=== PATIENT | male | born 1980 | race Caucasian/White ===

== ENCOUNTER 2017-10-01 19:30 | Emergency (ER) | payer SELFPAY ==
[2017-10-01] MEDS ORDERED: KETOROLAC TROMETHAMINE 60 MG/2 ML VIAL IM ONE (19:37)
[2017-10-01] MEDS ORDERED: NALBUPHINE HCL 10 MG/1 ML IM ONE (19:48)
--- NOTE | 2017-10-01 20:25 | ED Physician Documentation ---
General Adult - HISTORIAN Historian: patient - HPI Stated Complaint: rib cage pain, SOA Chief Complaint: General Adult Onset: minutes Further Comments: yes (37 year old male patient presents with sudden onset on left lateral chest wall pain. Patient reports history of spontaneous pneumothorax. Sat 98% on arrival, RR 28, rates pain 10/10. Patient has played baseball, foot ball and built fence for the past 3 days.) - ROS CONST: no problems EYES/ENT: none CVS/RESP: none GI/: none MS/SKIN/LYMPH: none NEURO/PSYCH: denies: headache - PAST HX Past History: none Other History: none Surgeries/Procedures: other (hernia repair) Allergies/Adverse Reactions: Allergies Allergy/AdvReac Type Severity Reaction Status Date / Time cephalexin monohydrate Allergy Rash Verified 10/01/17 19:41 [From Keflex] Penicillins Allergy Rash Verified 10/01/17 19:41 Home Medications: Ambulatory Orders Medication Instructions Recorded NK [NK] 10/01/17 - SOCIAL HX Smoking History: non-smoker - FAMILY HX Family History: No - VITAL SIGNS Vital Signs: Vital Signs Temp Pulse Resp BP Pulse Ox 98.5 F 100 H 24 119/84 99 10/01/17 19:30 10/01/17 19:30 10/01/17 19:30 10/01/17 19:30 10/01/17 19:30 - REVIEWED ASSESSMENTS Nursing Assessment Reviewed: Yes Vitals Reviewed: Yes Progress - EKG/XRAY/CT EKG: NSR (Rate 73, no acute changes. ) ED Results Lab/Radiology - Radiology Radiology Impressions: Chest 2 views History: Shortness of breath Findings: Low lung volumes are observed without infiltrate or pleural effusion. Heart size and pulmonary vascularity are normal. Osseous structures are unremarkable. Impression: Low lung volumes. Electronically signed on Oct 01, 2017 8:01:41 PM CLAY PIGEON LOADER by: Tommie Hodgson - Orders Orders: ED Orders Category Date Time Status Place IV Lock 1T Care 10/01/17 20:21 Active ABDOMEN COMPLETE [RAD] Stat Exams 10/01/17 Ordered CHEST P.A.&LAT 2 VIEWS [RAD] Stat Exams 10/01/17 Ordered CBC/PLATELET/DIFF Stat Lab 10/01/17 20:13 Ordered CMP Stat Lab 10/01/17 20:13 Ordered Ketorolac Tromethamine [Toradol] Med 10/01/17 19:37 Discontinued 60 mg IM NOW ONE Nalbuphine HCl [Nubain] Med 10/01/17 19:48 Discontinued 10 mg IM NOW ONE EKG WITH COMPARISON Stat Ther 10/01/17 20:13 Ordered General Adult Physical Exam - PHYSICAL EXAM GENERAL APPEARANCE: anxious EENT: eye inspection normal, RIO RESPIRATORY: no resp distress, breath sounds normal, other (left lateral chest wall - left ribs 4-5 area) CVS: reg rate & rhythm, heart sounds normal, equal pulses, no murmur, no gallop , PMI nml, no JVD, no friction rub, 24 ABDOMEN: soft, no organomegaly, normal bowel sounds, no abdominal bruit, no distension SKIN: normal color, warm/dry, NR, INT, PAL, DR EXTREMITIES: non-tender, normal range of motion, no evidence of injury, no edema , J, STOCKROOM SUPERVISOR NEURO: oriented X3, CN's nml as tested, motor nml, sensation nml, mood/affect nml Discharge Clincal Impression: Non-cardiac chest pain, Abdominal gas pain Additional Instructions: Lab and EKG are normal Chest xray normal. Abdomen xray shows gas. Over the counter laxative or gas Ex as needed. Condition: Stable Disposition: 01 HOME, SELF-CARE Decision to Admit: NO Decision Time: 21:16
[2017-10-01 21:00] LABS: BASOPHILS % 0.4 (0.0-1.5); EOSINOPHILS % 1.6 % (0.0-6.8); MEAN CORPUSCULAR HEMOGLOBIN 30.4 pg (28.0-34.0); MONOCYTES % 4.8 % (0.0-11.0); NEUTROPHILS # 4.4 # k/uL (1.4-7.7)
--- NOTE | 2017-10-01 21:06 | Diagnostic Imaging Report ---
NÉSTOR WALTON (HONG) - ER [facility] [address] [facility] [address] [address] Report Submission Date: Oct 01, 2017 8:01:41 PM TOY ASSEMBLY SUPERVISOR Patient Study Name: DAVID GUEVARA Date: Oct 01, 2017 7:42:16 PM TOY ASSEMBLY SUPERVISOR Modality Type: CR Gender: M Description: CHEST : 82 Institution: [facility] Physician: NÉSTOR WALTON) - ER Chest 2 views History: Shortness of breath Findings: Low lung volumes are observed without infiltrate or pleural effusion. Heart size and pulmonary vascularity are normal. Osseous structures are unremarkable. Impression: Low lung volumes. Electronically signed on Oct 01, 2017 8:01:41 PM TOY ASSEMBLY SUPERVISOR by: Tommie STEVE
--- NOTE | 2017-10-01 21:10 | Diagnostic Imaging Report ---
NÉSTOR WALTON (SENIOR ELECTRICAL DESIGN ENGINEER) - ER [facility] [address] [facility].[address] [address] Report Submission Date: Oct 01, 2017 9:08:59 PM ENROLLER Patient Study Name: DAVID GUEVARA Date: Oct 01, 2017 8:52:43 PM ENROLLER Modality Type: CR Gender: M Description: ABDOMEN : 82 Institution: [facility] Physician: NÉSTOR WALTON) - ER KUB Clinical history: Abdominal pain Technique ap supine radiograph of the abdomen Findings: The bowel gas pattern is nonspecific. No renal calcifications are seen. The bones are within normal limits. No abdominal masses identified. Indeterminate pelvic calcifications are present. Impression: Indeterminate pelvic calcifications Nonspecific bowel gas pattern Electronically signed on Oct 01, 2017 9:08:59 PM ENROLLER by: Gopi STEVE
[2017-10-01 21:12] LABS: eGFR (African) > 60; eGFR (Non-African) > 60
[2017-10-01 21:29] VITALS: BP 115/73
== END 2017-10-01 21:20 | disposition home or self-care (01) ==
LOC: ED 19:30
DX: R07.89 Other chest pain (principal); R10.9 Unspecified abdominal pain
CPT/HCPCS: 71020; 74020; 80053; 85025; J1885; J2300; 96372; 99283; S1016